=== PATIENT | male | born 1955 | race Caucasian/White ===

== ENCOUNTER 2017-03-05 09:32 | Outpatient (CLI) | payer OTHER ==
[~2017-03-05] VITALS: Ht 172.7 cm; Wt 93.0 kg
[~2017-03-05 09:32] MED LIST: CIPRO 500MG TA500 MG PO; LASIX 20MG TABL20 MG PO; LIDODERM 5% PATC1 EA TP; LYRICA 100MG C100 M1 PO; NEURONTIN300 MG/CAP PO; NORCO 325 MG-51 TAB PO; VALIUM 5MG T5 MG/TAB PO; VASOTEC20 MG PO; XANAX .25M0.25 MG/TA PO
[2017-03-05 10:07] VITALS: BP 148/74; PULSE 91; TEMP 97.6
== END 2017-03-05 12:08 | disposition home or self-care (01) ==
LOC: EUO 09:32
DX: D50.9 Iron deficiency anemia, unspecified (principal)
CPT/HCPCS: J2916

== ENCOUNTER 2017-05-10 18:10 | Emergency (ER) | payer OTHER ==
[~2017-05-10] VITALS: Ht 172.7 cm; Wt 90.9 kg
[2017-05-10 18:22] VITALS: BP 154/80; TEMP 98
[2017-05-10 20:53] VITALS: PULSE 82
== END 2017-05-10 20:53 | disposition home or self-care (01) ==
LOC: COL.ER 18:10
DX: S67.01XA Crushing injury of right thumb, initial encounter (principal); W23.0XXA Caught, crushed, jammed, or pinched between moving objects, initial encounter; I10 Essential (primary) hypertension; F17.210 Nicotine dependence, cigarettes, uncomplicated

== ENCOUNTER → 2017-05-14 | Outpatient (CLI) | payer OTHER | LOC: COL.RAD 08:03 | DX: M47.817 Spondylosis without myelopathy or radiculopathy, lumbosacral region (principal); M48.06 Spinal stenosis, lumbar region; R60.0 Localized edema; Z98.890 Other specified postprocedural states | CPT/HCPCS: A9585 ==

== ENCOUNTER 2017-10-29 12:55 | Outpatient (CLI) | payer OTHER ==
[~2017-10-29] VITALS: Ht 172.7 cm; Wt 99.6 kg
[2017-10-29 13:43] VITALS: BP 148/64; PULSE 82; TEMP 97.7
== END 2017-10-29 14:47 | disposition home or self-care (01) ==
LOC: EUO 12:55
DX: D50.9 Iron deficiency anemia, unspecified (principal)
CPT/HCPCS: J2916

== ENCOUNTER 2017-12-19 06:16 | Emergency (ER) | payer BC ==
[~2017-12-19] VITALS: Ht 175.3 cm; Wt 97.7 kg
[2017-12-19 06:19] VITALS: BP 167/82; PULSE 99; TEMP 98
[2017-12-19] MEDS ORDERED: BRINTELLIX10 (06:25)
[2017-12-19] MEDS ORDERED: NORCO 325 MG-51 TAB PO (07:20)
== END 2017-12-19 07:35 | disposition home or self-care (01) ==
LOC: COL.ER 06:16
DX: S92.514A Nondisplaced fracture of proximal phalanx of right lesser toe(s), initial encounter for closed fracture (principal); I10 Essential (primary) hypertension; F43.10 Post-traumatic stress disorder, unspecified; G62.9 Polyneuropathy, unspecified; F17.210 Nicotine dependence, cigarettes, uncomplicated; M54.9 Dorsalgia, unspecified; G89.29 Other chronic pain; Z23 Encounter for immunization; Z95.5 Presence of coronary angioplasty implant and graft; W22.8XXA Striking against or struck by other objects, initial encounter; Y92.009 Unspecified place in unspecified non-institutional (private) residence as the place of occurrence of the external cause